=== PATIENT | male | born 1985 | race African-American/Black ===

== ENCOUNTER 2022-07-19 10:06 | Emergency (ER) | payer SELFPAY ==
[~2022-07-19] VITALS: Ht 177 cm; Wt 102.0 kg
[2022-07-19] MEDS ORDERED: AZITHROMYCIN 250 MG TAB (ZITHROMAX) PO ONE (10:30)
[2022-07-19] MEDS ORDERED: LIDOCAINE 1% INJ 20 ML VIAL INJ ONE (10:30)
[2022-07-19] MEDS ORDERED: cefTRIAXone 250 MG/2.5 ML ML IM ONE (10:30)
--- NOTE | 2022-07-19 10:32 | ED GU-Male ---
General Chief Complaint: - Reproductive Stated Complaint: STD CHECK - DISCHARGE Nursing Triage Note: PT AMB TO [facility] DISCHARGE FROM [facility] THIS AM. PT DENIES PAIN OR BURNING AT THIS X Source: patient Exam Limitations: no limitations History of Present Illness Date Seen by Provider: Jul 19, 2022 Time Seen by Provider: 10:21 Initial Comments 37-year-old male presents requesting STD check. He states he has a whitish sharon ar penile discharge that started yesterday. Some mild dysuria. No blood. No new sexual partners. Last had sex about a week and a half ago. No fevers or chills. Allergies and Home Medications Allergies Coded Allergies: No Known Drug Allergies (Unverified , 07/19/22) Patient Home Medication List Home Medication List Reviewed: Yes Review of Systems Review of Systems Constitutional: no symptoms reported EENTM: no symptoms reported Respiratory: no symptoms reported Cardiovascular: no symptoms reported Gastrointestinal: no symptoms reported Genitourinary: pain, other (penile discharge) Musculoskeletal: no symptoms reported Skin: no symptoms reported Psychiatric/Neurological: No Symptoms Reported Endocrine: No Symptoms Reported Hematologic/Lymphatic: No Symptoms Reported Past Hbbvwfe-Xtqghp-Repqyk Hx Patient Social History Tobacco Use?: No Substance use?: No Alcohol Use?: No Pt feels they are or have been: No Past Medical History Surgery/Hospitalization HX: DENIES MEDICAL HX Family Medical History Reviewed Nursing Family Hx No Pertinent Family Hx Physical Exam Vital Signs Vital Signs - First Documented 07/19/22 10:17 Temp 36.9 Pulse 77 Resp 18 B/P (MAP) 138/76 (96) Pulse Ox 99 Capillary Refill : Less Than 3 Seconds Height, Weight, BMI Height: '" Weight: lbs. oz. kg; 32.00 BMI Method: General Appearance: WD/WN, no apparent distress Neck: non-tender, full range of motion, supple, normal inspection Cardiovascular: regular rate, rhythm, no edema, no gallop, no JVD, no murmur Respiratory: chest non-tender, lungs clear, normal breath sounds, no respiratory distress, no accessory muscle use Gastrointestinal: normal bowel sounds, non tender, soft, no organomegaly Male: no hernia, other (Slight clear penile drainage) Genital/Rectal: normal genital exam Back: normal inspection, no CVA tenderness, no vertebral tenderness Extremities: normal range of motion, non-tender, normal inspection, no calf tenderness Neurologic/Psychiatric: alert, normal mood/affect, oriented x 3 Skin: normal color, warm/dry Progress/Results/Core Measures Suspected Sepsis SIRS Temperature: Pulse: 77 Respiratory Rate: 18 Blood Pressure 138 /76 Mean: 96 Results/Orders Lab Results Laboratory Tests Test 07/19/22 10:25 Range/Units Urine Color YELLOW Urine Clarity CLEAR Urine pH 7.5 5-9 Urine Specific [place] 1.020 1.016-1.022 Urine Protein NEGATIVE NEGATIVE Urine Glucose (UA) NEGATIVE NEGATIVE Urine Ketones NEGATIVE NEGATIVE Urine Nitrite NEGATIVE NEGATIVE Urine Bilirubin NEGATIVE NEGATIVE Urine Urobilinogen 0.2 < = 1.0 MG/DL Urine Leukocyte Esterase 1+ H NEGATIVE Urine RBC (Auto) NEGATIVE NEGATIVE Urine RBC NONE /HPF Urine WBC 25-50 H /HPF Urine Crystals PRESENT H /LPF Urine Amorphous Sediment MOD MARÍA PHOSPHATE H /LPF Urine Bacteria TRACE /HPF Urine Casts NONE /LPF Urine Mucus NEGATIVE /LPF Urine Culture Indicated YES My Orders Orders - CHANDLER TONY DO Ua Culture If Indicated (07/19/22 10:19) Chlamydia Trachomatis Urine (07/19/22 10:19) Neis Alfredo Dna Urine Test (07/19/22 10:19) Azithromycin Tablet (Zithromax Tablet) (07/19/22 10:30) Ceftriaxone (Rocephin) (07/19/22 10:30) Lidocaine 1% Inj 20 Ml (Xylocaine 1% Inj (07/19/22 10:30) Urine Culture (07/19/22 10:25) Medications Given in ED Current Medications Medications Dose Ordered Sig/Carolyn Route Start Time Stop Time Status Last Admin Dose Admin Azithromycin 1,000 mg ONCE ONCE PO 07/19/22 10:30 07/19/22 10:31 DC 07/19/22 10:51 1,000 MG Ceftriaxone Sodium 250 mg ONCE ONCE IM 07/19/22 10:30 07/19/22 10:32 DC 07/19/22 10:51 250 MG Lidocaine HCl 0.9 ml ONCE ONCE INJ 07/19/22 10:30 07/19/22 10:32 DC 07/19/22 10:51 0.9 ML Vital Signs/I&O 07/19/22 10:17 Temp 36.9 Pulse 77 Resp 18 B/P (MAP) 138/76 (96) Pulse Ox 99 Capillary Refill : Less Than 3 Seconds Blood Pressure Mean: 96 Departure Impression Primary Impression: Penile discharge Disposition: 01 HOME, SELF-CARE Condition: Stable Departure-Patient Inst. Referrals: NO,LOCAL PHYSICIAN (PCP/Family) Primary Care Physician Patient Instructions: Chlamydia and Gonorrhea, Screening for Sexually Transmitted Infections Add. Discharge Instructions: You were treated for gonorrhea, chlamydia today. The official results will be called to you. Please notify sexual partners should these be positive. Probably primary physician for any nonemergent needs. Return to the emergency department for any severe concerns. All discharge instructions reviewed with patient and/or family. Voiced understanding. CHANDLER TONY DO Jul 19, 2022 10:31
[2022-07-19 10:33] LABS: BILIRUBIN,URINE NEGATIVE (NEGATIVE); CLARITY,URINE CLEAR; COLOR,URINE YELLOW; GLUCOSE, URINE (UA) NEGATIVE (NEGATIVE); KETONES,URINE NEGATIVE (NEGATIVE); LEUKOCYTE ESTERASE ,URINE 1+ (NEGATIVE); NITRITE,URINE NEGATIVE (NEGATIVE); PH,URINE 7.5 (5-9); PROTEIN,URINE NEGATIVE (NEGATIVE)
[2022-07-19 10:49] LABS: AMORPHOUS SEDIMENT,UR MOD AMOR PHOSPHATE /LPF; BACTERIA,URINE TRACE /HPF; WBC,URINE 25-50 /HPF
[2022-07-19 11:13] VITALS: BP 138/76
== END 2022-07-19 11:13 | disposition home or self-care (01) ==
LOC: ER 10:08
DX: R36.9 Urethral discharge, unspecified (principal); Z28.310 Unvaccinated for COVID-19
CPT/HCPCS: 36415; 81000; 87077; 87088; 87185; 87491; 87591; 99284